=== PATIENT | male | born 1970 | race American Indian/Alaskan Native ===

== ENCOUNTER 2020-12-28 06:42 | Day surgery (SDC) | payer BC ==
[2020-12-28 07:44] LABS: Basophils # (Auto) 0.2 K/mm3 (0.0-0.1); Basophils % (Auto) 2.8 % (0.0-1.8); Eosinophils # (Auto) 0.2 K/mm3 (0.0-0.4); Eosinophils % (Auto) 3.1 % (0.0-4.3); Hematocrit 45.2 % (35.5-45.6); Hemoglobin 15.5 gm/dl (11.8-15.2); Lymphocytes # (Auto) 1.7 K/mm3 (1.2-5.4); Lymphocytes % (Auto) 23.6 % (13.4-35.0); Mean Corpuscular HGB Conc 34 % (32-34); Mean Corpuscular Volume 88 fl (84-94); Monocytes # (Auto) 0.6 K/mm3 (0.0-0.8); Monocytes % (Auto) 7.7 % (0.0-7.3); Platelet Count 197 K/mm3 (140-440); Red Blood Count 5.11 M/mm3 (3.65-5.03); Red Cell Distribution Width 14.1 % (13.2-15.2)
[2020-12-28 07:52] LABS: INR 0.87 (0.87-1.13)
[2020-12-28 07:54] LABS: Blood Urea Nitrogen 13 mg/dL (9-20); Hemolysis Index 9
[2020-12-28 07:55] LABS: BUN/Creatinine Ratio 19
[2020-12-28] MEDS ORDERED: SODIUM CHLORIDE 0.9% 500 ML 500 ML IV SCH (08:00)
[2020-12-28] MEDS ORDERED: ASPIRIN EC 325 MG TAB PO SCH (08:00)
[2020-12-28] MEDS ORDERED: CLOPIDOGREL 75 MG TAB PO NR (09:01)
[2020-12-28] MEDS ORDERED: MIDAZOLAM 2 MG/2 ML INJ ONE (12:00)
[2020-12-28] MEDS ORDERED: VERAPAMIL 5 MG/2 ML INJ ONE (12:00)
[2020-12-28] MEDS ORDERED: HEPARIN 10,000 UNITS/10 ML VIAL ONE (12:00)
[2020-12-28] MEDS ORDERED: HEPARIN/NS 5000 UNIT/500ML 1,000 ML IR ONE (12:00)
[2020-12-28] MEDS ORDERED: NITROGLYCERIN SYRINGE 0 ML ONE (12:01)
[2020-12-28] MEDS: fentaNYL 100 MCG/2 ML INJ ONE ×3 (12:35→12:52)
[2020-12-28] MEDS: LIDOCAINE (2%) 20 MG/1 ML VIAL 20 ML MDV INFILTRATI ONE ×2 (12:40→12:45)
[2020-12-28] MEDS ORDERED: LIDOCAINE (2%) 20 MG/1 ML VIAL 20 ML MDV INFILTRATI ONE (12:57)
[2020-12-28 16:13] VITALS: BP 160/68
--- NOTE | 2021-01-01 14:29 | Electrocardiograph Report ---
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
--- NOTE | 2021-01-02 17:17 | Cardiac Catherization Report ---
DATE OF SERVICE: 12/28/2020 HISTORY: The patient is a 50-year-old gentleman with known coronary disease who has had significant symptoms recently and coronary angiography was recommended. PROCEDURE: Left heart catheterization, ventriculography, and coronary angiography via the right femoral artery using 5-[place] Vicki catheters and a pigtail catheter. COMPLICATIONS: None. ESTIMATED BLOOD LOSS: 10-20 mL. SEDATION: Intravenous Versed and fentanyl. TISSUE SAMPLE: None. PREPROCEDURE DIAGNOSIS: Unstable angina. POSTPROCEDURE DIAGNOSES: Coronary artery disease with no severe coronary lesions at this time. SEDATION START TIME: 12:35 p.m. PROCEDURE END TIME: 1:00 p.m. HEMODYNAMICS: Central aortic pressure 185/89. Left ventricular pressure 185/35. ANGIOGRAPHIC RESULTS: 1. Left ventricle: The ventriculogram reveals a normal-sized left ventricle with mild inferior hypokinesia. An estimation of the ejection fraction was 55%. 2. Right coronary artery: This is a dominant vessel and it is diffusely irregular with a mid stenosis of approximately 10%. There is an early distal stenosis of approximately 30%. There is a 50% lesion at the origin of the most distal posterolateral branch. Although no severe lesions were noted, collateral blood flow was appreciated from the left coronary artery to, what is probably, the distal PDA segment. 3. Left coronary artery: The left main is free of remarkable disease. The circumflex is irregular with no severe lesions. There was a small ramus intermedius branch and the ostium was somewhat hazy, although no significant lesions were noted. The LAD is remarkable for 3% mid stenosis and 30% stenosis in the early distal portion. The stents in the LAD system are patent with mild disease. There is a diagonal branch which is fairly small in caliber. There is an ostial 30% stenosis and there is a mid 60-70% stenosis. FINAL IMPRESSION: Coronary artery disease with unstable angina symptoms. There were no severe lesions present at this time. Consider coronary spasm and consider noncardiac pain mimicking angina. There is a mild to moderate coronary disease with preserved left ventricular function. The patient may have sustained an inferior wall myocardial infarction in the past with evidence of mild hypokinesia. The blood pressure is high at this time, consider unstable hypertension as a possible etiology of chest pain. PLAN: Aggressive medical therapy, CAD risk factor modification, office up within 7 days, use sublingual nitroglycerin p.r.n. TID: [id number] RECEIPT: [id number] FELISA
== END 2020-12-28 17:16 | disposition home or self-care (01) ==
LOC: CATHLABREC 06:42
PROVIDERS: ATTEND Internal Medicine Cardiovascular Disease
DX: I25.110 Atherosclerotic heart disease of native coronary artery with unstable angina pectoris (principal); I10 Essential (primary) hypertension; G47.30 Sleep apnea, unspecified; E78.00 Pure hypercholesterolemia, unspecified; K21.9 Gastro-esophageal reflux disease without esophagitis; Z79.82 Long term (current) use of aspirin; Z79.84 Long term (current) use of oral hypoglycemic drugs; Z79.899 Other long term (current) drug therapy; Z98.890 Other specified postprocedural states
CPT/HCPCS: 36415; 80048; 85025; 85610; 85730; 93005; 93458; 99156; 99157; C1769; C1894; J1644; J2250; J3010; J7040; Q9967